=== PATIENT | female | born 1990 | race Caucasian/White ===

== ENCOUNTER → 2019-01-25 | Outpatient (CLI) | payer OTHER ==
[2019-01-25 09:45] LABS: BASOPHILS # (AUTO) 0.04 x10^3/uL (0-0.1); BASOPHILS % (AUTO) 1 % (0-1); EOSINOPHILS # (AUTO) 0.15 x10^3/uL (0-0.4); EOSINOPHILS % (AUTO) 2 % (1-7); LYMPHOCYTES # (AUTO) 2.31 x10^3/uL (1-3.4); LYMPHOCYTES % (AUTO) 29 % (22-44); MD NO; MEAN CORPUSCULAR HEMOGLOBIN 25.3 pg (27.0-34.8); MEAN CORPUSCULAR VOLUME 79.1 fL (80-100); MEAN PLATELET VOLUME 9.8 fL (7.4-10.4); MONOCYTES # (AUTO) 0.39 x10^3/uL (0.2-0.8); MONOCYTES % (AUTO) 5 % (2-9); NEUTROPHILS % (AUTO) 64 % (42-75); PLATELET COUNT 266 x10^3/uL (130-400); RED BLOOD COUNT 5.28 x10^6/uL (3.82-5.3); RED CELL DISTRIBUTION WIDTH 16.3 % (9.6-15.2)
[2019-01-25 10:54] LABS: ALBUMIN 3.6 g/dL (3.4-5.0); ANION GAP 7 mmol/L (5-15); CALCIUM 8.6 mg/dL (8.5-10.1); CHLORIDE 110 mmol/L (98-107); CHOLESTEROL, TOTAL 119 mg/dL (140-239)
[2019-01-25 11:21] LABS: % IRON SATURATION 11 % (20-55); ALANINE AMINOTRANSFERASE 26 U/L (12-78); ALKALINE PHOSPHATASE 118 U/L (45-117); BILIRUBIN, DIRECT < 0.1 mg/dL (0.1-0.2); BILIRUBIN,TOTAL 0.3 mg/dL (0.2-1.0); CHOL/HDL RATIO 2.3; CREATININE 0.81 mg/dL (0.55-1.02); FOLATE LEVEL > 20.0 ng/mL (3.1-17.5); FREE T4 (FREE THYROXINE) 1.07 ng/dL (0.76-1.46); HDL CHOL % 44 % (28-40); HDL CHOLESTEROL (DIRECT) 52 mg/dL (40-60); IRON LEVEL 39 mcg/dL (50-170); LDL CHOLESTEROL,CALCULATED 48 mg/dL (54-169); LDL/HDL RATIO 0.9 (0.5-3.0); THYROID STIMULATING HORMONE 0.505 mIU/L (0.358-3.740); TOTAL IRON BINDING CAPACITY 345 mcg/dL (250-450); TOTAL PROTEIN 7.5 g/dL (6.4-8.2); TRANSFERRIN 247 mg/dL (200-360); TRIGLYCERIDES 93 mg/dL (50-200); VLDL CHOLESTEROL 19 mg/dL (0-25)
[2019-01-25 17:42] LABS: HEMOGLOBIN A1C 5.6 % (4.2-6.3)
== END | disposition home or self-care (01) ==
LOC: LAB 09:15
PROVIDERS: ATTEND Nurse Practitioner Primary Care
DX: Z12.11 Encounter for screening for malignant neoplasm of colon (principal); Z13.220 Encounter for screening for lipoid disorders; Z12.4 Encounter for screening for malignant neoplasm of cervix; Z71.3 Dietary counseling and surveillance; R63.8 Other symptoms and signs concerning food and fluid intake; R53.83 Other fatigue; Z88.3 Allergy status to other anti-infective agents; Z68.39 Body mass index [BMI] 39.0-39.9, adult
CPT/HCPCS: 36415; 80053; 80061; 82248; 82306; 82607; 82728; 82746; 83036; 83540; 83550; 84207; 84425; 84439; 84443; 84466; 84481; 84630; 85025